=== PATIENT | male | born 1930 | race Caucasian/White ===

== ENCOUNTER → 2016-04-24 | Outpatient (CLI) | payer MEDICARE, MEDICAID | END | disposition home or self-care (01) | LOC: NC 12:01 | PROVIDERS: ATTEND Family Medicine | DX: I25.10 Atherosclerotic heart disease of native coronary artery without angina pectoris (principal); Z12.5 Encounter for screening for malignant neoplasm of prostate | CPT/HCPCS: 80053; 80061; 80177; 85025; G0103 ==

== ENCOUNTER 2016-11-08 23:06 | Observation (INO) | payer MEDICARE, MEDICAID ==
[2016-11-08] MEDS ORDERED: NITROGLYCERIN 0.4 MG 25 EA TAB SL ONE (23:26)
[2016-11-08] MEDS ORDERED: ASPIRIN TABLET 325 MG TAB PO ONE (23:26)
[2016-11-08] MEDS ORDERED: SODIUM CHLORIDE 0.9% (FLUSH) 10 ML SYG IV PRN (23:26)
--- NOTE | 2016-11-08 23:46 | RAD ---
EXAM DESCRIPTION: Chest,1 View CLINICAL HISTORY: 86 years Male pain COMPARISON: 02/14/2015 FINDINGS: Cardiac size and the mediastinal contour appear stable. Lungs are hyperinflated consistent with COPD. This appears stable. No consolidation or acute infiltrate. No central pulmonary vascular congestion. No pleural fluid. Calcification in the right midlung which is unchanged. IMPRESSION: No acute abnormality is identified. Pulmonary hyperinflation consistent with COPD Electronically signed by: Miladis Mejia 11/08/2016 11:45 PM CDT
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
[2016-11-09] MEDS ORDERED: NITROGLYCERIN 0.4 MG/HR PATCH TOP ONE (01:02)
[2016-11-09] MEDS ORDERED: NITROGLYCERIN 0.4 MG 25 EA TAB SL PRN (08:38)
[2016-11-09] MEDS ORDERED: ACETAMINOPHEN 325 MG TAB PO PRN (08:38)
[2016-11-09] MEDS ORDERED: SODIUM CHLORIDE 0.9% (FLUSH) 10 ML SYG IV PRN (08:38)
[2016-11-09] MEDS ORDERED: MORPHINE SULFATE INJ 10 MG/ML VIAL IV PRN (08:38)
[2016-11-09] MEDS ORDERED: HYDROcodone 7.5MG/APAP 325MG 1 EA TAB PO PRN (08:44)
[2016-11-09] MEDS ORDERED: NON-FORMULARY MEDICATION 1 EA MIS (Linaclotide [Linzess] 145 MCG) PO PRN (08:44)
[2016-11-09] MEDS ORDERED: LISINOPRIL 5 MG TAB PO SCH (09:00)
[2016-11-09] MEDS ORDERED: ISOSORBIDE MONONITRATE (IMDUR) 30 MG TAB PO SCH (09:00)
[2016-11-09] MEDS ORDERED: SODIUM CHLORIDE 0.9% (FLUSH) 10 ML SYG IV SCH (09:00)
[2016-11-09] MEDS ORDERED: METOPROLOL SUCCINATE XL 25 MG TAB PO SCH (09:00)
[2016-11-09] MEDS ORDERED: IV SET AND CAP CHANGE INJ INJ SCH (09:00)
[2016-11-09] MEDS ORDERED: amLODIPine BESYLATE 5 MG TAB PO SCH (09:00)
[2016-11-09] MEDS ORDERED: PHENYTOIN 125 MG/5 ML PO SCH (09:00)
[2016-11-09] MEDS ORDERED: PHENYTOIN SODIUM CAP EXTENDED 100 MG CAP PO ONE (09:33)
[2016-11-09] MEDS ORDERED: NITROGLYCERIN 0.4 MG 25 EA TAB SL ONE (12:00)
[2016-11-09] MEDS ORDERED: guaiFENesin ER TAB 600 MG TAB PO SCH (12:00)
[2016-11-09] MEDS ORDERED: LEVALBUTEROL NEBS 1.25 MG/3 ML VIAL NEB PRN (12:02)
[2016-11-09] MEDS ORDERED: LEVALBUTEROL NEBS 1.25 MG/3 ML VIAL NEB SCH (12:30)
[2016-11-09 14:24] VITALS: BP 101/59; TEMP 97.9
[2016-11-09 14:43] VITALS: O2SAT 92
--- NOTE | 2016-11-09 17:21 | SSS ---
SUPERVISING PHYSICIAN: Ray Luu M.D. DISCHARGE DIAGNOSES: 1. Chest pain rule out myocardial infarction. 2. Chronic obstructive pulmonary disease in a heavy tobacco user. 3. Left renal mass by CT. Per the patient's family, he was told he had kidney cancer. 4. Coronary artery disease. 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 6. Poor medical compliance. 7. History of alcohol abuse. CHIEF COMPLAINT: Chest pain. HISTORY OF PRESENT ILLNESS: This is an 86 year-old male patient that on the day prior to admission had gone to an ENT physician in [place] for a followup related to some throat issues. He also was in the process of getting some hearing aids. He had spent most of the day over in [place] and when he got home in the early evening, he said he was extremely tired. About 10:00 PM, he took his blood pressure and it was 200s/100s and he had some chest pain. He took it sometime later and he still continued to have elevated blood pressure with continued chest pain. He took 1 Nitroglycerin and came to the Emergency Room. In the Emergency Room, his initial lab work showed a WBC of 9.5 , hemoglobin 15.2, hematocrit 45.3 with platelet count 352. Neutrophils were 57.2%. Initial chemistry showed sodium 133, potassium 4.3, chloride 99, glucose 112. Initial cardiac enzymes showed troponin less than 0.02, CK-MB was 1.9 and creatinine kinase was 51. BNP was 37.9. He had no ST elevation on his EKG. Chest x-ray per radiology interpretation showed no acute abnormality and pulmonary hyperinflation consistent with COPD. His blood pressure was brought under control. A short time after he was in the Emergency Room, his blood pressure was 166/106 and shortly after midnight on the day of admission it was 143/72. I was called for admission to the hospital. HOSPITAL COURSE: The patient had no further complaints of chest pain. His blood pressure stabilized around 130s/70s and 80s. There were no changes on his 2 subsequent EKGs. His subsequent cardiac enzymes were negative. When reviewing his medication, his family was concerned about a medication that Dr. Delcid gave him that interacted with his Dilantin. I called the [facility] and the pharmacist identified the medication as Ranexa. The only interaction with Ranexa and Dilantin is that Dilantin can sometimes make the Ranexa slightly less effective for chest pain. The patient is on Norvasc, Toprol, Isosorbide and Lisinopril. Per the pharmacy, he is very erratic with his blood pressure medications. In fact, the patient was not sure which antihypertensive medications he was on and he or his daughter could not tell me exactly what medications he was on and if he had taken them correctly. His medications were restarted here in the hospital. He can be discharged home at this time. DISCHARGE PLAN: The patient will be discharged home in stable condition. He has an EGD scheduled for Sunday in [place] and he has an ENT appointment on Sunday of next week. He will followup with his primary care physician, Dr. Torres on Sunday the . I have reordered all of his antihypertensives in case he did not have them at home and he can followup with his medications with Dr. Torres on Sunday. Again, they are all called in to [facility]. He does have a long history of smoking almost 2 packs of cigarettes daily. We discussed tobacco cessation, although the patient is unwilling at this time. He is to return to the Emergency Room or followup with Dr. Torres's office for any other problems or any additional chest pain. He has an appointment with Dr. Delcid at some point but he is not sure when that is. He thinks it is within the next month. DISCHARGE MEDICATIONS: 1. Nitroglycerin. 2. Aspirin. 3. Hydrocodone. 4. Dilantin. 5. Linzess. 6. ProAir HFA. 7. Amlodipine. 8. Tylenol Sinus. 9. Metoprolol succinate. 10. Isosorbide. 11. Xopenex. 12. Guaifenesin. Dr. Luu is the collaborating physician available for consultation. #[id number] [facility]
[2016-11-10] MEDS ORDERED: PANTOPRAZOLE SODIUM TAB 40 MG PO SCH (06:30)
[2016-11-10] MEDS ORDERED: ASPIRIN TABLET 325 MG TAB PO SCH (09:00)
== END 2016-11-09 14:36 | disposition home or self-care (01) ==
LOC: ER 23:06 → MS 11-09 02:48
PROVIDERS: ADMIT Nurse Practitioner Acute Care; ATTEND Nurse Practitioner Acute Care
DX: R07.89 Other chest pain (principal); J44.9 Chronic obstructive pulmonary disease, unspecified; F17.210 Nicotine dependence, cigarettes, uncomplicated; C64.2 Malignant neoplasm of left kidney, except renal pelvis; I25.10 Atherosclerotic heart disease of native coronary artery without angina pectoris; I10 Essential (primary) hypertension; K21.9 Gastro-esophageal reflux disease without esophagitis; F10.21 Alcohol dependence, in remission; Z79.82 Long term (current) use of aspirin; Z79.899 Other long term (current) drug therapy; Z88.0 Allergy status to penicillin; Z88.6 Allergy status to analgesic agent; Z88.8 Allergy status to other drugs, medicaments and biological substances
CPT/HCPCS: 36415 ×4; 71010; 80048; 80061; 80076; 82550 ×3; 82553 ×3; 83880; 84484 ×4; 85025; 85379; 85610; 85730; 93005 ×4; 94640; 94760 ×3; 99284; J7614

== ENCOUNTER → 2017-01-11 | Outpatient (CLI) | payer MEDICARE, MEDICAID | END | disposition home or self-care (01) | LOC: GMAM 14:17 | PROVIDERS: ATTEND Family Medicine | DX: R56.9 Unspecified convulsions (principal) ==

== ENCOUNTER → 2017-01-18 | Outpatient (CLI) | payer MEDICARE, MEDICAID | END | disposition home or self-care (01) | LOC: GMAM 17:17 | PROVIDERS: ATTEND Family Medicine | DX: N39.0 Urinary tract infection, site not specified (principal) ==

== ENCOUNTER → 2017-07-04 | Outpatient (CLI) | payer OTHER, MEDICAID | LOC: LAB.O 14:38 | PROVIDERS: ATTEND Family Medicine | DX: R31.0 Gross hematuria (principal); I63.50 Cerebral infarction due to unspecified occlusion or stenosis of unspecified cerebral artery; Z12.5 Encounter for screening for malignant neoplasm of prostate; N39.0 Urinary tract infection, site not specified | CPT/HCPCS: 80185; 87086; G0103 ==

== ENCOUNTER → 2017-11-20 | Outpatient (CLI) | payer OTHER, MEDICAID | LOC: GMAM 11:55 | PROVIDERS: ATTEND Family Medicine | DX: R56.9 Unspecified convulsions (principal); E72.00 Disorders of amino-acid transport, unspecified; I10 Essential (primary) hypertension ==

== ENCOUNTER → 2017-12-05 | Outpatient (CLI) | payer OTHER, MEDICAID | LOC: GMAM 14:26 | PROVIDERS: ATTEND Family Medicine | DX: R31.0 Gross hematuria (principal) ==

== ENCOUNTER → 2018-01-04 | Outpatient (CLI) | payer OTHER, MEDICAID | LOC: YCHH 10:11 | PROVIDERS: ATTEND Family Medicine | DX: N39.0 Urinary tract infection, site not specified (principal) ==

== ENCOUNTER 2018-02-27 16:49 | Inpatient (IN) | payer MEDICAID, OTHER ==
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
--- NOTE | 2018-02-27 19:12 | HP ---
SUPERVISING PHYSICIAN: Apurva Nguyễn MD CHIEF COMPLAINT: Acute mental status change. HISTORY OF PRESENT ILLNESS: Mr. Lozoya is an 87-year-old patient that is in hospice care with [facility] due to metastatic prostate cancer. Today, he was sitting on the commode and became unresponsive and reportedly had a seizure. He was brought in by EMS. No reported seizure was noted at that time. He had been under the care of [facility]. Dr. Torres requested the patient be placed in inpatient hospice for close observation given his acute mental status change. PAST MEDICAL HISTORY: 1. Metastatic prostate cancer with metastasis. 2. Coronary artery disease. 3. Chronic obstructive pulmonary disease. 4. Gastroesophageal reflux disease. 5. Previous cerebrovascular accidents. 6. Seizure disorder status post head injury in the [employer] at age 22. 7. Chronic constipation. 8. Chronic alcohol abuse. 9. Chronic tobacco abuse. 10. Gastroesophageal reflux disease. PAST SURGICAL HISTORY: 1. Tonsillectomy. 2. Right carotid endarterectomy. 3. Skull fracture in 1949 resulting in surgery placing two metal plates. 4. Left hand surgery. 5. Bilateral cataract extraction with lens implantation. 6. Cardiac catheterization. 7. Esophagogastroduodenoscopy in 2009. CURRENT MEDICATIONS: Please see an updated list in the medical records verified from hospice. ALLERGIES: ALBUTEROL, LIPITOR, NEURONTIN, PENICILLIN, PHENOBARBITAL, VALIUM. FAMILY HISTORY: Noncontributory. SOCIAL HISTORY: The patient has smoked his entire life and continues to smoke. He drinks alcohol on a regular basis and has been a heavy drinker in the past. He has no history of illicit drug use. REVIEW OF SYSTEMS: Unobtainable due to the patient's mental status. PHYSICAL EXAMINATION: VITAL SIGNS: Temperature 97.4. Pulse 78. Blood pressure initially 197/115. Respiratory rate 16. Saturation 92% on room air. On admission to the Medical/Surgical Floor, the patient had blood pressure 144/96. GENERAL: The patient is confused on admission, very cachectic. HEENT: Significant hearing loss bilaterally. RESPIRATORY: Decreased breath sounds throughout, but no rhonchi, wheezes, or rales. CARDIOVASCULAR: Regular rate and rhythm without any appreciable murmurs, gallops, or rubs. ABDOMEN: Notably tender with hepatomegaly. RECTAL: Deferred. NEUROLOGIC: He is lethargic. He has a very depressed affect. SKIN: Warm and dry. LABORATORY: CBC showed white count 8,500, hemoglobin 12.5, hematocrit 38.0, platelet count 320,000. Differential did show a left shift. Chemistries showed normal electrolytes with BUN 17, creatinine 1.18. AST elevated at 68, ALT was normal at 33. Alkaline phosphatase 745. RADIOLOGY: No additional radiographic studies at time of admission. ASSESSMENT: 1. Metastatic adenocarcinoma of the prostate, on hospice care. 2. Acute mental status change, uncertain etiology, with concerns for possible seizure. 3. Poorly controlled hypertension. 4. Chronic obstructive pulmonary disease in a heavy smoker. 5. Long-term tobacco abuse. 6. History of alcohol abuse. 7. Gastroesophageal reflux disease. 8. History of previous cerebrovascular accident. 9. 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 PLAN: The patient is going to be placed in observation per hospice request. Hospice nurse has been providing orders. We will continue to follow the patient and help as needed. We will anticipate discharge hopefully later tomorrow or possibly Sunday with decision based on [employer] and family's decision. At this point, he is on comfort measures. We will continue to monitor as needed and treat as requested until discharge and the patient can be transitioned back to outpatient hospice care at home. #[id number] [facility]TDD
[2018-02-27] MEDS ORDERED: LEVALBUTEROL NEBS 0.63 MG/3 ML VIAL NEB PRN (19:42)
[2018-02-27] MEDS ORDERED: NITROGLYCERIN 0.4 MG 25 EA TAB SL PRN (19:45)
[2018-02-27] MEDS ORDERED: HYDROmorphone HCL INJ 2 MG/ML VIAL IV PRN (19:53)
[2018-02-27] MEDS ORDERED: ONDANSETRON INJ 4 MG/2 ML VIAL IV PRN (19:55)
[2018-02-27] MEDS ORDERED: FUROSEMIDE INJ 20 MG/2 ML VIAL NEB PRN (19:57)
[2018-02-27] MEDS ORDERED: ATROPINE 1% OPHTH SOL 1 DROP DROPS SL PRN (20:00)
[2018-02-27] MEDS: SENNA/DOCUSATE TAB 1 EA TAB PO SCH (22:03)
[2018-02-27] MEDS: HALOPERIDOL TAB 1 MG TAB PO SCH (22:03)
[2018-02-27] MEDS: LEVALBUTEROL NEBS 0.63 MG/3 ML VIAL NEB SCH (22:15)
[2018-02-28] MEDS ORDERED: ONDANSETRON INJ 4 MG/2 ML VIAL IV PRN (04:39)
[2018-02-28] MEDS: predniSONE 10 MG TAB PO SCH ×2 (06:25→09:18)
[2018-02-28] MEDS: DILAUDID PO PRN ×2 (06:25→18:09)
[2018-02-28] MEDS: LEVALBUTEROL NEBS 0.63 MG/3 ML VIAL NEB SCH ×2 (07:42→20:32)
[2018-02-28] MEDS ORDERED: predniSONE 10 MG TAB PO SCH ×2 (09:00→12:00)
[2018-02-28] MEDS: SENNA/DOCUSATE TAB 1 EA TAB PO SCH ×2 (09:17→20:54)
[2018-02-28] MEDS: TAMSULOSIN 0.4 MG CAP PO SCH (09:17)
[2018-02-28] MEDS: amLODIPine BESYLATE 5 MG TAB PO SCH (09:18)
[2018-02-28] MEDS: PHENYTOIN SODIUM CAP EXTENDED 100 MG CAP PO SCH (09:18)
[2018-02-28] MEDS: METOPROLOL SUCCINATE XL 25 MG TAB PO SCH (09:18)
[2018-02-28] MEDS: FOLIC ACID 1 MG TAB PO SCH (09:18)
[2018-02-28] MEDS: ASPIRIN (CHEWABLE) 81 MG TAB PO SCH (09:18)
[2018-02-28] MEDS: LISINOPRIL 5 MG TAB PO SCH (09:18)
[2018-02-28] MEDS ORDERED: LORazepam 0.5 MG TAB PO PRN (11:54)
[2018-02-28] MEDS ORDERED: diphenhydrAMINE HCL 50 MG/ML VIAL IV PRN (11:59)
[2018-02-28] MEDS: HALOPERIDOL TAB 1 MG TAB PO SCH (20:52)
[2018-02-28] MEDS: LORazepam 0.5 MG TAB PO SCH (20:53)
--- NOTE | 2018-02-28 22:36 | PN ---
DATE: 02/28/18 SUPERVISING PHYSICIAN: Amish Nguyễn M.D. SUBJECTIVE: This morning the patient is interacting with his family with multiple family members at bedside. Hospice nurse has not arrived this morning. No new changes were noted. Anticipate hopefully being able to discharge tomorrow after arrangements have been made for a hospital bed at home. OBJECTIVE: VITAL SIGNS: Remain stable. CHEST: Lungs were clear to auscultation. HEART: Regular rate and rhythm. ABDOMEN: Soft, non-tender. Positive bowel sounds. NEUROLOGIC: He is alert and oriented times three. No labs or radiographic studies. ASSESSMENT: 1. Metastatic adenocarcinoma of the prostate, on hospice care. 2. Acute mental status change, uncertain etiology, with concerns for possible seizure. 3. Poorly controlled hypertension. 4. Chronic obstructive pulmonary disease in a heavy smoker. 5. Long-term tobacco abuse. 6. History of alcohol abuse. 7. Gastroesophageal reflux disease. 8. History of previous cerebrovascular accident. 9. 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 PLAN: Will hopefully be able to discharge the patient tomorrow as he continues with outpatient hospice. In talking with family, they are just waiting on a hospital bed. When that is in place hope to be able to discharge tomorrow. Until then will continue to follow and treat as needed. #[id number] [facility]
[2018-03-01 07:12] VITALS: BP 163/88; TEMP 97.9
[2018-03-01] MEDS: TAMSULOSIN 0.4 MG CAP PO SCH (08:15)
[2018-03-01] MEDS: FOLIC ACID 1 MG TAB PO SCH (08:15)
[2018-03-01] MEDS: ASPIRIN (CHEWABLE) 81 MG TAB PO SCH (08:15)
[2018-03-01] MEDS: predniSONE 10 MG TAB PO SCH (08:15)
[2018-03-01] MEDS: amLODIPine BESYLATE 5 MG TAB PO SCH (08:15)
[2018-03-01] MEDS: PHENYTOIN SODIUM CAP EXTENDED 100 MG CAP PO SCH (08:16)
[2018-03-01] MEDS: LISINOPRIL 5 MG TAB PO SCH (08:16)
[2018-03-01] MEDS: METOPROLOL SUCCINATE XL 25 MG TAB PO SCH (08:16)
[2018-03-01] MEDS: SENNA/DOCUSATE TAB 1 EA TAB PO SCH (08:16)
[2018-03-01] MEDS: LORazepam 0.5 MG TAB PO SCH (08:23)
[2018-03-01] MEDS: LEVALBUTEROL NEBS 0.63 MG/3 ML VIAL NEB SCH (08:32)
[2018-03-01 09:30] VITALS: O2SAT 94
--- NOTE | 2018-03-01 21:37 | DS ---
SUPERVISING PHYSICIAN: Amish Nguyễn M.D. DISCHARGE DIAGNOSIS: 1. Metastatic adenocarcinoma of the prostate, on hospice care. 2. Acute mental status change, uncertain etiology, with concerns for possible seizure. 3. Poorly controlled hypertension. 4. Chronic obstructive pulmonary disease in a heavy smoker. 5. Long-term tobacco abuse. 6. History of alcohol abuse. 7. Gastroesophageal reflux disease. 8. History of previous cerebrovascular accident. 9. 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 HISTORY OF PRESENT ILLNESS: This is an 87-year-old male patient who is in hospice care with [facility] due to metastatic prostate cancer. On the date of admission, he was sitting on the commode and became unresponsive and reportedly had a seizure. He was brought in by EMS. No reported seizure was noted during his EMS trip. He is under the care of [facility]. Dr. Torres requested the patient be placed in observation per hospice request. [facility] has provided orders. HOSPITAL COURSE: The patient was followed. He was given comfort measures. His mental status improved and the patient interacted with his family. Arrangements were made for the patient to have a hospital bed at home. Those arrangements have been completed and he has a hospital bed at home. Today he will be discharged and continued under hospice care. DISCHARGE PLAN: The patient will be discharged home in stable but poor condition. He will resume his care by [facility]. He is to resume his previous medications and for any problems Dr. Torres is to be contacted. DISCHARGE MEDICATIONS: 1. Nitroglycerin. 2. Aspirin. 3. Dilantin. 4. ProAir. 5. Xopenex. 6. metoprolol. 7. Hydromorphone. 8. Sennoside. 9. Ranitidine. 10. Ibuprofen. 11. Haloperidol. 12. Zofran. 13. Tamsulosin. 14. Prednisolone. 15. Amlodipine. 16. Lisinopril. #[id number] [facility]
== END 2018-03-01 10:22 | disposition hospice, home (50) | DRG 101 ==
LOC: ER 16:49 → MS 19:11 → OBSVTOIN 19:11
PROVIDERS: ADMIT Nurse Practitioner Family; ATTEND Nurse Practitioner Family
DX: G40.802 Other epilepsy, not intractable, without status epilepticus (principal); C78.00 Secondary malignant neoplasm of unspecified lung; C78.7 Secondary malignant neoplasm of liver and intrahepatic bile duct; C61 Malignant neoplasm of prostate; I25.10 Atherosclerotic heart disease of native coronary artery without angina pectoris; J44.9 Chronic obstructive pulmonary disease, unspecified; K21.9 Gastro-esophageal reflux disease without esophagitis; K59.09 Other constipation; F17.210 Nicotine dependence, cigarettes, uncomplicated; F10.10 Alcohol abuse, uncomplicated; Z86.73 Personal history of transient ischemic attack (TIA), and cerebral infarction without residual deficits; Z51.5 Encounter for palliative care; Z88.0 Allergy status to penicillin; Z88.8 Allergy status to other drugs, medicaments and biological substances; Z79.82 Long term (current) use of aspirin; Z66 Do not resuscitate

== ENCOUNTER 2018-03-05 19:05 | Observation (INO) | payer OTHER ==
[2018-03-05] MEDS ORDERED: SODIUM CHLORIDE IVPB ONE ×2 (20:08→20:58)
[2018-03-05] MEDS ORDERED: FOSPHENYTOIN PE IVPB ONE ×2 (20:08→20:58)
--- NOTE | 2018-03-05 20:41 | CT ---
EXAM: Head CLINICAL INDICATION: Metastatic cancer, seizures COMPARISON: 10/17/2010 TECHNIQUE: The CT scan was done using contiguous axial 2.5 mm sections through the brain. This exam was performed according to our departmental dose-optimization program, which includes automated exposure control, adjustment of the mA and/or kV according to patient size and/or use of iterative reconstruction technique. FINDINGS: There is no midline shift, mass effect, or extraaxial fluid collection. There is no evidence of acute intracranial hemorrhage, mass lesion, or cerebral edema, except for small calcified meningioma overlying the left frontal lobe measuring 11.4 x 4.9 mm. Moderate diffuse cerebral atrophy is noted. Bone window images reveal no evidence of a skull fracture. IMPRESSION: No evidence of an acute intracranial process. Electronically signed by: Tex Santiago MD 03/05/2018 8:39 PM [facility]
[2018-03-05] MEDS ORDERED: FOSPHENYTOIN 100 PE/2 ML VIAL IVPB ONE (21:02)
[2018-03-05] MEDS ORDERED: SODIUM CHLORIDE 0.9% 100ML 100 ML IVPB ONE (21:03)
--- NOTE | 2018-03-05 22:13 | ED.PDOC ---
History of Present Illness - General Chief Complaint: Neuro Symptoms/Deficits Stated Complaint: seizures Time Seen by Provider: 03/05/18 19:13 Source: RN notes reviewed, Vital Signs reviewed, family, RN/MD Exam Limitations: clinical condition - History of Present Illness Initial Comments: reportedly he has been having breakthrough seizures today (taking Dilantin). The hospice nurse was called & also witnessed seizure activity. Ultimately he was given a total of 5 mg of Ativan before the seizures completely stopped. He has a h/o similar episodes. Timing/Duration: 1-3 hours, episodic Severity: severe Improving Factors: other - Ativan Associated Symptoms: loss of consciousness Allergies/Adverse Reactions: Allergies Diazepam [From Valium] Allergy (Severe, Verified 02/27/18 17:16) Other Swelling Fentanyl Allergy (Severe, Verified 02/27/18 17:16) Anaphylaxis Morphine Allergy (Severe, Verified 02/27/18 17:16) Anaphylaxis Gabapentin [From Neurontin] Allergy (Mild, Verified 02/27/18 17:16) Rash Penicillins Allergy (Mild, Verified 02/27/18 17:16) Vomitting Albuterol Allergy (Verified 02/27/18 17:16) Diphenhydramine [From Benadryl] Allergy (Verified 02/27/18 17:16) Levofloxacin [From Levaquin] Allergy (Verified 02/27/18 17:16) Phenobarbital Allergy (Verified 02/27/18 17:16) Atorvastatin [From Lipitor] Adverse Reaction (Verified 02/27/18 17:16) Home Medications: Ambulatory Orders Aspirin [Baby Aspirin] 81 mg PO QD 12/27/14 Nitroglycerin 0.4 mg Tab [Nitrostat] 0.4 mg SL PRN PRN 12/27/14 Phenytoin Suspension [Dilantin Suspension] 100 mg PO DAILY 02/14/15 Albuterol Sulfate [Proair Hfa] 2 puff INH Q6H PRN 09/08/15 Levalbuterol Nebs [Xopenex NEBS] 1.25 mg NEB RTQ4 PRN #100 unit 11/09/16 Levalbuterol Nebs [Xopenex NEBS] 1.25 mg NEB RTQID #100 11/09/16 Metoprolol Succinate [Metoprolol Succinate ER] 25 mg PO BEDTIME #30 tablet 08/24/17 HYDROmorphone HCL [Dilaudid] 4 mg PO Q4H PRN 02/27/18 Haloperidol [Haldol] 5 mg PO BEDTIME 02/27/18 Hydromorphone Sr 10 mg PO BID 02/27/18 Ibuprofen 600 mg PO Q6H 02/27/18 Lisinopril 5 mg PO PRN PRN 02/27/18 Ondansetron Odt [Zofran Odt] 8 mg PO BID 02/27/18 Prednisolone Sodium Phosphate [Prednisolone Sodium Phosp] 10 mg PO BID 02/27/18 Ranitidine HCl [Ranitidine 75] 75 mg PO BID 02/27/18 Sennosides [Senna] 8.6 mg PO BID 02/27/18 Tamsulosin HCl 0.4 mg PO DAILY 02/27/18 amLODIPine BESYLATE [Norvasc] 2.5 mg PO DAILY 02/27/18 Review of Systems - Review of Systems Unable to Obtain Due To: clinical condition Past Medical History (General) - Patient Medical History Hx Seizures: Yes Hx Stroke: Yes Hx Asthma: No Hx of COPD: Yes Hx Cardiac Disorders: Yes Hx Congestive Heart Failure: No Hx Pacemaker: No Hx Hypertension: Yes Hx Diabetes: No Hx Gastroesophageal Reflux: Yes Hx Cancer: Yes Hx Hepatitis C: No Hx MRSA: No - Vaccination History Hx Tetanus, Diphtheria Vaccination: Yes Hx Influenza Vaccination: Yes Hx Pneumococcal Vaccination: Yes - Social History Hx Tobacco Use: Yes Hx Alcohol Use: No Hx Substance Use: No Hx Substance Use Treatment: No Hx Depression: No Hx Physical Abuse: No Hx Emotional Abuse: No Hx Suspected Abuse: No - Female History Patient : No - Triage Comment ED Triage Comment: history of seizure activity and cancer. Sent by hospice nurse per PCP to check med levels. Family Medical History - Family History Father Living Status: Cause of : heart attack Hx Family Asthma: Yes Hx Family Congestive Heart Failure: Yes Hx Family Hypertension: Yes Hx Family Stroke: No Hx Cardiac Disease: Yes Hx Family Diabetes: No Hx Family Cancer: Yes - leukemia -dad Mother Family History: Unknown Living Status: Hx Family Asthma: No Hx Family Congestive Heart Failure: Yes Hx Family Hypertension: Yes Hx Family Stroke: No Hx Cardiac Disease: Yes Hx Family Diabetes: No Hx Family Cancer: Yes Physical Exam - Physical Exam General Appearance: Emaciated, Frail, No apparent distress, Other - asleep; occasional myoclonic jerks Eye Exam: bilateral normal Neck: supple, normal inspection Respiratory: normal breath sounds, no respiratory distress Cardiovascular/Chest: regular rate, rhythm, no edema Gastrointestinal/Abdominal: non tender, soft, no organomegaly Extremities Exam: no evidence of injury Mental Status: 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 He is a hospice patient & after consulting with family & the hospice staff the decision was made to place him in the hospital & raise his Dilantin level back to therapeutic levels. I d/w the hospitalist. No seizure activity here. All available fosphenytoin was infused. - EKG/XRAY/CT CT Ordered: Yes - no acute process or mass Departure - Departure Clinical Impression: Seizure disorder, Dilantin level too low Convulsions Qualifiers: Convulsion type: unspecified Qualified Code(s): R56.9 - Unspecified convulsions Time of Disposition: 22:12 Disposition: Admit Patient Condition: Good Home Medications: Ambulatory Orders Aspirin [Baby Aspirin] 81 mg PO QD 12/27/14 Nitroglycerin 0.4 mg Tab [Nitrostat] 0.4 mg SL PRN PRN 12/27/14 Phenytoin Suspension [Dilantin Suspension] 100 mg PO DAILY 02/14/15 Albuterol Sulfate [Proair Hfa] 2 puff INH Q6H PRN 09/08/15 Levalbuterol Nebs [Xopenex NEBS] 1.25 mg NEB RTQ4 PRN #100 unit 11/09/16 Levalbuterol Nebs [Xopenex NEBS] 1.25 mg NEB RTQID #100 11/09/16 Metoprolol Succinate [Metoprolol Succinate ER] 25 mg PO BEDTIME #30 tablet 11/09 HYDROmorphone HCL [Dilaudid] 4 mg PO Q4H PRN 02/27/18 Haloperidol [Haldol] 5 mg PO BEDTIME 02/27/18 Hydromorphone Sr 10 mg PO BID 02/27/18 Ibuprofen 600 mg PO Q6H 02/27/18 Lisinopril 5 mg PO PRN PRN 02/27/18 Ondansetron Odt [Zofran Odt] 8 mg PO BID 02/27/18 Prednisolone Sodium Phosphate [Prednisolone Sodium Phosp] 10 mg PO BID 02/27/18 Ranitidine HCl [Ranitidine 75] 75 mg PO BID 02/27/18 Sennosides [Senna] 8.6 mg PO BID 02/27/18 Tamsulosin HCl 0.4 mg PO DAILY 02/27/18 amLODIPine BESYLATE [Norvasc] 2.5 mg PO DAILY 02/27/18 Decision To Admit - Decistion To Admit Decision to Admit Reason: Admit from ER Decision to Admit Date: 03/05/18 Decision to Admit Time: 22:12
[2018-03-05] MEDS ORDERED: SODIUM CHLORIDE 0.9% (FLUSH) 10 ML SYG IV PRN (22:16)
[2018-03-05] MEDS ORDERED: IV SET AND CAP CHANGE INJ INJ SCH (22:30)
[2018-03-05] MEDS ORDERED: levETIRAcetam INJ 500 MG in SODIUM CHLORIDE 0.9% 100ML 100 ML IVPB SCH (22:30)
--- NOTE | 2018-03-05 22:36 | HP ---
SUPERVISING PHYSICIAN: Ray Luu MD CHIEF COMPLAINT: Seizures HISTORY OF PRESENT ILLNESS: Mr. Lozoya is an 87-year-old patient who is currently under [facility] from prostate cancer with metastases. However, he also has a comorbidity of seizure activities. He takes Dilantin chronically for this. However, at home he was noted to have seizures. The hospice nurse called his primary care physician, Dr. Torres, who suggested the patient come to the Emergency Room. In the Emergency Room the patient was given several doses of Ativan to control his seizures as well as had a Dilantin level drawn. The Dilantin level was less than 2.5, therefore, he was given 500 mg IV of Cervarix. He was given this as opposed to 1000 mg because there was not 1000 available.. However, his seizure activity stopped and he was postictal and sedated from the Ativan. Therefore, he was referred for admission, however, due to the fact he is not under hospice for seizure activity but only cancer they would not admit him under hospice. For that reason, he is being admitted acutely for observation for seizure disorder. At time of examination, the patient is sedated. His vital signs are acceptable. PAST MEDICAL HISTORY: 1. Prostate cancer with metastasis. 2. Coronary artery disease. 3. Chronic obstructive pulmonary disease. 4. Gastroesophageal reflux disease. 5. Previous strokes/seizure disorder after a head injury in the [employer] at age 22. 6. Chronic constipation. 7. Chronic alcohol abuse. 8. Chronic tobacco abuse. PAST SURGICAL HISTORY: 1. Tonsillectomy. 2. Right carotid endarterectomy. 3. Skull fracture in 1950 which required two metal plates. 4. Left hand surgery. 5. Bilateral cataract removals. . 6. Cardiac catheterization. 7. Esophagogastroduodenoscopy.. ALLERGIES: Albuterol, Lipitor, Neurontin, Penicillin, Phenobarbital, Valium. CURRENT MEDICATIONS: 1. Albuterol 2 puffs inhaled p.r.n.. 2. Norvasc 2.5 mg p.o. daily. 3. Aspirin 81 mg p.o. daily. 4. Haldol 5 mg p.o. at bedtime. 5. Dilaudid 4 mg every 4 hours p.r.n. for pain. 6. Ibuprofen 600 mg every 6 hours for pain/fever. 7. Xopenex 1.25 mg every 4 hours p.r.n. for shortness of breath and wheezing. 8. Lisinopril 5 mg as needed for blood pressure. 9. Metoprolol 25 mg at bedtime. 10. Nitroglycerin 0.4 mg p.r.n. for chest pain. 11. Zofran 5 mg p.o. b.i.d. for nausea and vomiting. 12. Penicillin Suspension 100 mg p.o. daily. 13. Prednisolone 10 mg p.o. b.i.d. 14. Ranitidine 75 mg p.o. b.i.d. 15. Senna 8.6 mg p.o. b.i.d. 16. Tamsulosin. 0.4 mg p.o. daily. FAMILY HISTORY: Unable to be answered by the patient at this time. SOCIAL HISTORY: The patient is a continuous smoker. He also drinks alcohol on a regular basis and has done so for multiple years. No apparent illegal drugs. REVIEW OF SYSTEMS: Cannot be obtained due to the fact the patient is sedated. PHYSICAL EXAMINATION: VITAL SIGNS: Blood pressure 144/76, heart rate 74, respiratory rate 16, temperature 97.7, oxygen saturation 99%. GENERAL: Mr. Lozoya is an 87 year-old patient who is in no severe distress at this time but obviously he is chronically ill in appearance. HEENT: Normocephalic and atraumatic. Eyes: pupils equal and reactive. Nose with no drainage. Throat with dry mucosa. NECK: Supple, non-tender, no jugular venous distention. CHEST: Symmetrical with equal rise and fall of the chest with inspiration and expiration. Lung sounds are clear to auscultation bilaterally. CARDIOVASCULAR: The patient has a regular rate and rhythm, normal S1, S2. ABDOMEN: Soft, positive bowel sounds. EXTREMITIES: Lower extremities with no edema. NEUROLOGIC: The patient is sedated. RADIOLOGY: CT scan of the brain was done and shows no acute intracranial process. LABORATORY: CBC shows a WBC of 9.2, hemoglobin 10.9, hematocrit 33.9, platelet count 257,000. Chemistry shows a sodium of 137, potassium 3.2, chloride 102, C02 of 28, BUN 19, creatinine 1.34, glucose 144, calcium 6.7, total bilirubin 1.9, alkaline phosphatase 493, albumin 2.1. ASSESSMENT: 1. Seizure disorder with an acute seizure episode. 2. Metastatic prostate cancer. 3. Chronic alcohol abuse. 4. Chronic nicotine abuse. 5. History of coronary artery disease. 6. Protein calorie malnutrition. PLAN: The patient will be admitted under observation under the hospitalist program for acute seizures. Due to the fact that we could not give the full dose of Dilantin, I am going to Keppra to his therapy. Will give 500 mg of Keppra and also p.r.n. Ativan has been ordered. I have also started some IV fluids on him with potassium replacement as well. The patient has a DNR and this will be maintained throughout the admission. Hopefully, if he remains seizure-free, he can be discharged tomorrow under Hospice care once again. I would imagine that given his Dilantin level being extremely low, he probably will need to increase doses of Dilantin at home. That would be my suggestion for discharge versus adding Keppra to his therapy as well. #[id number] [facility]
[2018-03-05] MEDS: KCL 20 MEQ/NS 1,000 ML IVS PRN (23:27)
[2018-03-06] MEDS ORDERED: LEVALBUTEROL NEBS 0.63 MG/3 ML VIAL NEB PRN (09:01)
[2018-03-06] MEDS: KCL 20 MEQ/NS 1,000 ML IVS PRN (09:06)
[2018-03-06] MEDS ORDERED: HYDROCODONE PO SCH (09:15)
[2018-03-06] MEDS ORDERED: ACETAMINOPHEN SUPPOSITORY 650 MG PR PRN (09:30)
[2018-03-06] MEDS ORDERED: DEXAMETHASONE 4 MG TAB PO SCH (09:30)
[2018-03-06] MEDS ORDERED: SENNOSIDES 8.6 MG TAB PO SCH (09:30)
[2018-03-06] MEDS ORDERED: ONDANSETRON ODT 8 MG TAB PO SCH (09:30)
[2018-03-06] MEDS ORDERED: ASPIRIN (CHEWABLE) 81 MG TAB PO SCH (09:30)
[2018-03-06] MEDS ORDERED: amLODIPine BESYLATE 5 MG TAB PO SCH (09:30)
[2018-03-06] MEDS ORDERED: LEVALBUTEROL NEBS 0.63 MG/3 ML VIAL NEB SCH (09:30)
[2018-03-06] MEDS ORDERED: HALOPERIDOL TAB 5MG PO SCH (09:30)
[2018-03-06] MEDS ORDERED: PHENYTOIN SODIUM CAP EXTENDED 100 MG CAP PO SCH (09:30)
[2018-03-06] MEDS ORDERED: METOPROLOL SUCCINATE XL 25 MG TAB PO SCH (09:30)
[2018-03-06 10:08] VITALS: O2SAT 96
[2018-03-06] MEDS ORDERED: HYDROmorphone HCL INJ 2 MG/ML VIAL IV PRN (10:48)
[2018-03-06] MEDS ORDERED: NITROGLYCERIN 0.4 MG 25 EA TAB SL PRN (10:48)
[2018-03-06 11:10] VITALS: BP 136/82; TEMP 98.5
--- NOTE | 2018-03-08 11:19 | DS ---
SUPERVISING PHYSICIAN: Ray Luu MD ADMISSION DIAGNOSIS: 1. Seizure disorder with an acute seizure episode. 2. Metastatic prostate cancer. 3. Chronic alcohol abuse. 4. Chronic nicotine abuse. 5. History of coronary artery disease. 6. Protein calorie malnutrition. DISCHARGE DIAGNOSIS: 1. Seizure disorder with an acute seizure episode secondary to subtherapeutic Dilantin levels, possibly exacerbated by recent addition of Haldol. 2. Metastatic prostate cancer. 3. Chronic alcohol abuse. 4. Chronic nicotine abuse. 5. History of coronary artery disease. 6. Protein calorie malnutrition. REASON FOR HOSPITALIZATION: Mr. Lozoya is an 87-year-old patient who is currently under [facility] from prostate cancer with metastases. However, he also has a comorbidity of seizure activities. He takes Dilantin chronically for this. However, at home he was noted to have seizures. The hospice nurse called his primary care physician, Dr. Torres, who suggested the patient come to the Emergency Room. In the Emergency Room the patient was given several doses of Ativan to control his seizures as well as had a Dilantin level drawn. The Dilantin level was less than 2.5, therefore, he was given 500 mg IV of Cervarix. He was given this as opposed to 1000 mg because there was not 1000 available.. However, his seizure activity stopped and he was postictal and sedated from the Ativan. Therefore, he was referred for admission, however, due to the fact he is not under hospice for seizure activity but only cancer they would not admit him under hospice. For that reason, he is being admitted acutely for observation for seizure disorder. At time of examination, the patient is sedated. His vital signs are acceptable. HOSPITAL COURSE: The patient was admitted to Acute Care for seizure from the Emergency Room. He was loaded with Dilantin in the Emergency Room and on the morning of discharge was started on Dilantin p.o. and was no longer having any seizure activity. Given that he is a hospice patient and was stable without any current activity, I discussed with family and [facility] and the best action was discharge the patient back to hospice care and continue with oral Dilantin and to recheck the level in the coming days after discharge. The patient was stable at that point and was discharged back to hospice care. PLAN: Mr. Lozoya was discharged back to [facility] at home. He was to resume his previous hospice orders. He was to have a Dilantin level drawn Sunday after discharge with dosing to be adjusted by Dr. Torres. All home medications were resumed as prior to discharge. No new medications were added to his regimen. Activities, diet and care as per hospice care. DISPOSITION: The patient was discharged to home with family and [facility]. CONDITION ON DISCHARGE: Poor, but stable. #[id number] [facility]
== END 2018-03-06 14:57 | disposition hospice, home (50) ==
LOC: ER 19:05 → MS 22:35
PROVIDERS: ADMIT Nurse Practitioner; ATTEND Nurse Practitioner Family
DX: G40.909 Epilepsy, unspecified, not intractable, without status epilepticus (principal); R79.1 Abnormal coagulation profile; C61 Malignant neoplasm of prostate; C79.9 Secondary malignant neoplasm of unspecified site; F10.10 Alcohol abuse, uncomplicated; F17.210 Nicotine dependence, cigarettes, uncomplicated; E46 Unspecified protein-calorie malnutrition; Z68.1 Body mass index [BMI] 19.9 or less, adult; I25.10 Atherosclerotic heart disease of native coronary artery without angina pectoris; I10 Essential (primary) hypertension; J44.9 Chronic obstructive pulmonary disease, unspecified; K21.9 Gastro-esophageal reflux disease without esophagitis; K59.09 Other constipation; Z86.73 Personal history of transient ischemic attack (TIA), and cerebral infarction without residual deficits; Z79.82 Long term (current) use of aspirin; Z79.52 Long term (current) use of systemic steroids; Z79.891 Long term (current) use of opiate analgesic; Z79.899 Other long term (current) drug therapy; Z88.0 Allergy status to penicillin; Z88.6 Allergy status to analgesic agent; Z88.8 Allergy status to other drugs, medicaments and biological substances
CPT/HCPCS: 96365; J8540; J7614 ×2; J3480 ×2; J7050; 80053 ×2; 36415 ×3; 85025; 80185 ×2; 84484; 70450; 94640 ×2; 99285; 93005